=== PATIENT | male | born 1975 | race Caucasian/White ===

== ENCOUNTER 2020-11-19 09:01 | Outpatient (REF) | payer OTHER, SELFPAY ==
[2020-11-19 09:55] LABS: Alanine Aminotransferase 25 U/L (0-40); Albumin Level 4.5 g/dL (3.5-5.0); Alkaline Phosphatase 85 U/L (39-117); Anion Gap 12 (12-20); Aspartate Amino Transferase 22 U/L (5-37); Bilirubin Total 0.7 mg/dL (0.0-1.0); Blood Urea Nitrogen 14 mg/dL (9-16); Calcium 8.7 mg/dL (8.4-10.2); Carbon Dioxide 28 mmol/L (22-29); Chloride 106 mmol/L (96-108); Cholesterol 64 mg/dL; Estimated Glomerular Filt Rate > 60; Glucose Random 95 mg/dL (60-115); HDL Cholesterol 29 mg/dL; LDL Cholesterol Calculated 26 mg/dl; Sodium 142 mmol/L (135-145); Triglycerides 48 mg/dL
== END 2020-11-19 09:02 | disposition home or self-care (01) ==
LOC: HO.LAB 09:01
PROVIDERS: Visit Provider Internal Medicine
DX: I25.10 Atherosclerotic heart disease of native coronary artery without angina pectoris (principal)
CPT/HCPCS: 36415; 80053; 80061

== ENCOUNTER 2021-06-12 07:09 | Outpatient (REF) | payer MEDICAID, SELFPAY ==
--- NOTE | ~2021-06-12 | CT_ITS ---
EXAMINATION: CT CHEST WITHOUT CONTRAST CLINICAL INFORMATION: Chest pain. COMPARISON: CT chest 12/22/2018 TECHNIQUE: Multidetector volumetric CT imaging of the chest was done. Axial MIP volume rendering provided. Sagittal and coronal reformatted images were obtained. This CT examination was performed using dose optimization techniques as appropriate, variously including the following: *Automated exposure control *Adjustment of mA and/or kV according to patient size (this includes techniques or standardized protocols for targeted exams where dose is matched to indication/reason for exam; i.e. extremities or head) *Use of iterative reconstruction technique DLP: 170 mGy-cm FINDINGS: CARPET INSPECTOR FINISHED: Unremarkable. LUNGS: The lungs are well expanded and clear of pneumonic consolidation. Again visualized are branching tubular opacities in the right middle lobe on axial image 273 through 283/7, similar to previous study. No additional lesions seen. No mass, ground-glass density or atelectasis seen. MEDIASTINUM: The thyroid lobes are symmetrical and normal. The central trachea and the bronchi are widely patent. The heart size and the great vessels are normal caliber. There are coronary artery calcifications present. PLEURA: There is no pleural effusion. No pleural mass or thickening. AXILLA: No abnormal lymphadenopathy seen. The chest wall is unremarkable. UPPER ABDOMEN: Visualized liver, spleen, pancreas, and bilateral adrenal glands are unremarkable. OSSEOUS STRUCTURES: Unremarkable. CT/CT chest wo con IMPRESSION: Stable tubular adke-pm-dwvzaoexn pattern right middle lobe. No additional lesions seen. No consolidation.
== END 2021-06-12 07:10 | disposition home or self-care (01) ==
LOC: HO.CT 07:09
PROVIDERS: PCP General Practice; Visit Provider General Practice
DX: R07.9 Chest pain, unspecified (principal)
CPT/HCPCS: 71250

== ENCOUNTER 2021-07-06 13:35 | Outpatient (REF) | payer MEDICAID, SELFPAY ==
--- NOTE | 2021-07-06 | PFT_ITS ---
FLOWS: FEV1 84% of predicted at 3.25 L. FVC 79% of predicted at 3.79 L. FEV1 to FVC ratio of 0.86. No bronchodilator response except in small to medium airways. LUNG VOLUMES: Total lung capacity 99% of predicted at 6.49 L. Residual volume 128% of predicted at 2.33 L. Slow vital capacity 88% of predicted at 4.16 L. Expiratory reserve volume 35% of predicted at 0.51 L. Diffusion capacity is normal. IMPRESSION: No obstructive or restrictive ventilatory defect. No bronchodilator response except in small to medium airways. Increased residual volume suggests air trapping. Decreased expiratory reserve volume consistent with extrathoracic restriction likely secondary to abdominal obesity. Nito Mathews MD AP/MODL / [id number] MTDD
== END 2021-07-06 13:36 | disposition home or self-care (01) ==
LOC: HO.RESP 13:35
PROVIDERS: PCP General Practice; Visit Provider General Practice
DX: R07.9 Chest pain, unspecified (principal)
CPT/HCPCS: 94060; 94727; 94729

== ENCOUNTER 2022-10-18 09:33 | Outpatient (REF) | payer MEDICAID, SELFPAY ==
--- NOTE | ~2022-10-18 | XR_ITS ---
EXAMINATION: XR CHEST CLINICAL INFORMATION: Cough. COMPARISON: Chest CT dated June 12, 2021. Chest x-ray dated October 19, 2016. TECHNIQUE: 2 views of the chest were obtained. FINDINGS: No significant abnormality is noted involving the heart, lungs, mediastinum, bony thorax or soft tissues. XR/XR chest 2V IMPRESSION: Unremarkable examination.
== END 2022-10-18 09:34 | disposition home or self-care (01) ==
LOC: HO.XRAY 09:33
PROVIDERS: Visit Provider Emergency Medicine
DX: R68.89 Other general symptoms and signs (principal); R05.9 Cough, unspecified
CPT/HCPCS: 71046